=== PATIENT | male | born 1985 | race Caucasian/White ===

== ENCOUNTER 2023-11-18 07:22 | Outpatient (CLI) | payer OTHER, SELFPAY ==
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
--- OUTSIDE RECORDS SUMMARY | 2023-11-19 16:01 | XMS_ITS | Encounter Summary ---
Author Name Unknown Organization [facility] Address [address] [place] [address] Care Team Providers Care Wilderness Guide Name Role Phone No Primary/Referring, Phy Primary Care Provider Unavailable Reason for Visit * (Routine) - Incomplete Specialty Diagnoses / Procedures Referred By Roscoe harmon Referred To Contact Procedures XR C-Arm 0-30 Minutes XR C-Arm 2-2.5 Hours Lucas Valverde MD [address] [place] [address] Referral ID Status Reason Start Date Expiration Date V isits Requested Visits Authorized [id number] Incomplete 11/19/2023 02/17/2025 1 1 Encounter Details Date Type Department Care Team Description 11/19/2023 8:35 AM CONCRETE PIPE MAKER Ancillary Procedure [facility] [address] [place] [address] Arrived Social History Tobacco Use Types Packs/Day Years [...] Department Care Team Description 11/20/2023 8:00 AM CONCRETE PIPE MAKER [facility] Occup[facility] [address] [place] [address] 11/20/2023 3:00 PM CONCRETE PIPE MAKER [facility] [address] [place] [address] 11/21/2023 5:00 AM CONCRETE PIPE MAKER Appointment [facility] Ultrasound [address] [place] [address] 11/21/2023 6:00 AM CONCRETE PIPE MAKER Appointment [facility] [address] [place] [address] Scheduled Procedures Name Priority Associated Diagnoses Date/Ti me FUSION POSTERIOR APPROACH LUMBAR SPINE T12 burst fracture (HRC) 11/19/2023 8:50 AM CONCRETE PIPE MAKER IMAGE GUIDANCE ADD ON SPINE (*) T12 burst fracture (HRC) 11/19/2023 8:50 AM CONCRETE PIPE MAKER O-ARM ADD ON (*) T12 burst fracture (HRC) 11/19/2023 8:50 AM CONCRETE PIPE MAKER documented as of this encounter Procedures Procedure Name Priority Date/Time Associated Diagnosis Comments XR C-ARM 0-30 MINUTES Routine 11/19/2023 10:40 AM CONCRETE PIPE MAKER documented in this encounter Results * XR C-Arm 0-30 Minutes (11/19/2023 10:40 AM CONCRETE PIPE MAKER) Anatomical Region Laterality Modality X-Ray Angiograph y Narrative 11/19/2023 11:55 AM CONCRETE PIPE MAKER Fluoroscopy provided by a applied technologist. Exact fluoroscopy time is documented in end of exam information in EPIC Lucas Valverde MD RAD GD documented in this encounter Visit Diagnoses Not on filedocumented in this encounter Care Teams Wilderness Guide Relationship Specialty Start Date End Date No Primary/Referring, Phy PCP - General 11/18/23 documented as of this encounter
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
--- OUTSIDE RECORDS SUMMARY | 2023-11-19 16:01 | XMS_ITS | Encounter Summary ---
Author Name Unknown Organization [facility] Address [address] [place] [address] Care Team Providers Care Boat Person Name Role Phone No Primary/Referring, Phy Primary Care Provider Unavailable Reason for Visit * (Routine) - Incomplete Specialty Diagnoses / Procedures Referred By Roscoe harmon Referred To Contact Procedures XR C-Arm 1.5-2 Hours XR C-Arm 30-59 Minutes Lucas Valverde MD [address] [place] [phone] Referral ID Status Reason Start Date Expiration Date V isits Requested Visits Authorized [id number] Incomplete 11/19/2023 02/17/2025 1 1 Encounter Details Date Type Department Care Team Description 11/19/2023 8:30 AM FIRE FIGHTERS DISPATCHER Ancillary Procedure [facility] [address] [place] [address] Arrived Social History Tobacco Use Types Packs/Day [...] Department Care Team Description 11/20/2023 8:00 AM FIRE FIGHTERS DISPATCHER [facility] [address] [place] [address] 11/20/2023 3:00 PM FIRE FIGHTERS DISPATCHER [facility] [address] [place] [address] 11/21/2023 5:00 AM FIRE FIGHTERS DISPATCHER Appointment [facility] Ul[facility]ound [address] [place] [address] 11/21/2023 6:00 AM FIRE FIGHTERS DISPATCHER Appointment [facility] [address] [place] [address] Scheduled Procedures Name Priority Associated Diagnoses Date/Ti me FUSION POSTERIOR APPROACH LUMBAR SPINE T12 burst fracture (HRC) 11/19/2023 8:50 AM FIRE FIGHTERS DISPATCHER IMAGE GUIDANCE ADD ON SPINE (*) T12 burst fracture (HRC) 11/19/2023 8:50 AM FIRE FIGHTERS DISPATCHER O-ARM ADD ON (*) T12 burst fracture (HRC) 11/19/2023 8:50 AM FIRE FIGHTERS DISPATCHER documented as of this encounter Procedures Procedure Name Priority Date/Time Associated Diagnosis Comments XR C-ARM 1.5-2 HOURS Routine 11/19/2023 11:55 AM FIRE FIGHTERS DISPATCHER documented in this encounter Results * XR C-Arm 1.5-2 Hours (11/19/2023 11:55 AM FIRE FIGHTERS DISPATCHER) Anatomical Region Laterality Modality X-Ray Angiograph y Narrative 11/19/2023 11:56 AM FIRE FIGHTERS DISPATCHER Fluoroscopy provided by a ep technologist. Exact fluoroscopy time is documented in end of exam information in EPIC Lucas Valverde MD RAD GD documented in this encounter Visit Diagnoses Not on filedocumented in this encounter Care Teams Boat Person Relationship Specialty Start Date End Date No Primary/Referring, Phy PCP - General 11/18/23 documented as of this encounter
--- OUTSIDE RECORDS SUMMARY | 2023-11-19 16:01 | XMS_ITS | Clinical Summary ---
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 (11/18/2023 2:12 PM HR COORDINATOR) Pathologist [facility] Protime 14.2 11.8 - 14.6 Seconds 11/18/2023 2:38 PM HR COORDINATOR [facility] INR 1.1 0.9 - 1.1 11/18/2023 2:38 PM HR COORDINATOR [facility] Blood Venipuncture / Unknown 11/18/2023 2:12 PM HR COORDINATOR 11/18/2023 2:17 PM HR COORDINATOR [facility] - 11/18/2023 2:38 PM HR COORDINATOR Therapeutic range determined by protocol established by anticoagulation provider. Kendell Terrazas MD LAB_[email or web address] Performing Organization Address [facility] Co de Phone Number [address] * Ecg 12-Lead Routine (11/18/2023 1:56 PM HR COORDINATOR) Ventricular Rate 90 BPM [facility] Atrial Rate 90 BPM [facility] P-R Interval 156 ms [facility] QRS Duration 90 ms [facility] QT 350 ms [facility] QTc 428 ms [facility] P Kiel 48 degrees [facility] R Kiel 61 degrees [facility] T Kiel 25 degrees [facility] 11/18/2023 1:56 PM HR COORDINATOR [facility] - 11/18/2023 5:00 PM HR COORDINATOR Sinus rhythm Normal ECG No previous ECGs available Confirmed by Ricki Herrera ([id number]) on 11/18/2023 5:00:16 PM Procedure Note Ricki Herrera MD - 11/18/2023 Sinus rhythm Normal ECG No previous ECGs available Confirmed by Ricki Herrera ([id number]) on 11/18/2023 5:00:16 PM Kendell Terrazas MD EKG [facility] [address] [place] [address] from Last 3 Months Advance Directives Latest Code Status on File Code Status Date Activated Date Inactivated Comments Full Code 11/18/2023 4:59 PM Care Teams 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
--- OUTSIDE RECORDS SUMMARY | 2023-11-19 16:01 | XMS_ITS | Encounter Summary ---
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 Sat11/19/23 at 0801, Per Hypoglycemic episode: Give 25g IV push, recheck POCT glucose in 15 minutes, if result less than 70mg/dL, may repeat. After 2 doses notify Practitioner. May continue to treat while waiting for call back. fentaNYL (SUBLIMAZE) injection 25-50 mcg (CANCELED) 25-50 mcg, Intravenous, [id number], Pain, Starting on Sat11/19/23 at 1211, Until Sat11/19/23 at 1455, PACU USE ONLY 25 mcg IV q5min prn based on the patient's pain scale rating for mild to moderate pain (1 to 5). 50 mcg IV q5min prn based on the patient's pain scale rating for moderate to severe pain (6 to 10). Total PACU fentanyl dose not to exceed 3 mcg/kg. Use fentanyl initially for a short acting agent for treatment of acute post operative pain. May use in conjuction with a longer acting agent for optimal pain control. Respiratory rate must be greater than 10 to administer medications., PACU (only) 1315 (Given - Provid er: Davida Noland RN)1345 (Given - Provider: Davida Noland RN) folic acid 1 mg, thiamine (VITAMIN B-1) 100 mg in sodium chloride 0.9 % 50 mL IV piggyback at 100 mL/hr, Intravenous, DAILY PRN, Starting on Sat11/19/23 at 1520, Until Sat11/22/23 at 1519, if patient unable to take thiamine and folate PO (request dose from Pharmacy) gelatin adsorbable (GELFOAM) sponge size 100 (CANCELED) ONCE PRN, Starting on Sat11/19/23 at 0952, Until Sat11/19/23 at 1455, Intra-op 0952 (Given - Provid er: Lucas Valverde MD) glucagon rDNA (diagnostic) (GLUCAGEN) injection 1 mg(Linked Group 2) 1 mg, Intramuscular, Q15MIN PRN, Hypoglycemia, Per Adult Hypoglycemia Treatment Protocol, Starting on Sat11/19/23 at 0801, Until Discontinued, Per Hypoglycemic episode: Give 1mg IM, turn patient on side to prevent aspiration if vomits. If appropriate, establish IV access STAT. Recheck POCT glucose in 15 minutes, if result less than 70mg/dL and still no IV access, may repeat 1mg IM x 1. Recheck POCT glucose in 15 minutes, if result is less than 70mg/dL notify Practitioner. glucose (GLUTOSE) 40 % oral gel 15 g of glucose(Linked Group 2) 15 g of glucose, Oral, Q15MIN PRN, Hypoglycemia, Per Adult Hypoglycemia Treatment Protocol, Starting on Sat11/19/23 at 0801, Until Discontinued, Give 15g orally, recheck POCT glucose in 15 minutes, if result less than 70mg/dL, may repeat. After 2 doses notify Practitioner. May continue to treat while waiting for call back. 37.5g tube delivers 15g of glucose HYDROmorphone (DILAUDID) injection 0.2-0.3 mg (CANCELED) 0.2-0.3 mg, Intravenous, Q15MIN PRN, Pain, Starting on Sat11/19/23 at 1211, Until Sat11/19/23 at 1455, PACU USE ONLY 0.2 mg IV q15min prn based on the patients pain scale rating for mild to moderate pain (1-5) 0.3 mg IV q15min prn based on the patients pain scale rating for moderate to severe pain (6 to 10) Total PACU hydromorphone dose not to exceed 2 mg per hour., PACU (only) 1330 (Given - Provid er: Davida Noland RN)1345 (Given - Provider: Davida Noland RN)1415 (Given - Provider: Davida Noland RN) HYDROmorphone (DILAUDID) injection 0.2-0.4 mg 0.2-0.4 mg, Intravenous, Q2H PRN, Pain, Use if unable to take PO, Starting on Sat11/18/23 at 1659, Until Sat11/20/23 at 1658, For 48 hours, Give IV opioid for breakthrough pain, if unable to give PO or per patient preference. 1715 (Given - Provider: Iona Avalos RN)1915 (Given - Provider: Iona Avalos RN)213 (Given - Provider: Iona Avalos RN) 0023 (Given - Provider: Syl Robles RN)022 (Given - Provider: Syl Robles RN)0455 (Given - Provider: Syl Robles RN)0748 (Given - Provider: Juany Lan RN) lidocaine-epinephrine 1 %-1:[id number] injection (CANCELED) ONCE PRN, Starting on Sat11/19/23 at 1020, Until Sat11/19/23 at 1455, Intra-op 1020 (Given - Provid er: Lucas Valverde MD) methocarbamol (ROBAXIN) tablet 500 mg 500 mg, Oral, QID PRN, Muscle Spasms, Starting on Sat11/18/23 at 1919, Until Discontinued 1944 (Given - Provider: Iona Avalos RN) 221 (Given - Provider: Syl Robles RN)142 (Given - Provider: Davida Noland RN) metoclopramide (REGLAN) injection 5 mg(Linked Group 3) 5 mg, Intravenous, Q6H PRN, Nausea, Vomiting, Starting on Sat11/18/23 at 1730, Until Discontinued, Give 1st line medications, then 2nd line, then 3rd line. Progress to next line if medication is ineffective after 15 minutes, or has been previously ineffective, or if a medication for a line is not ordered. May use medication from any line if patient preference indicates. If third line agent is ineffective, call Practitioner. If unable to give IV medications contact Practitioner. Aromatherapy may be used at any time as adjunct therapy. 1st Line - ondansetron 2nd Line -prochlorperazine 3rd Line - metoclopramide 185 (Given - Provider: Iona Avalos RN) naloxone (NARCAN) injection 0.2 mg 0.2 mg, Intravenous, PRN PER PARAMETERS, Opioid Reversal, Excessive Sedation/Respiratory Rate less than 8 breaths per minute.? Notify Practitioner if given., Starting on Sat11/18/23 at 1659, Until Discontinued, Excessive Sedation/Respiratory Rate less than 8 breaths per minute.? Notify Practitioner if given. ondansetron (ZOFRAN) injection 4 mg(Linked Group 3) 4 mg, Intravenous, Q8H PRN, Nausea, Vomiting, Starting on Sat11/18/23 at 1730, Until Discontinued, Give 1st line medications, then 2nd line, then 3rd line. Progress to next line if medication is ineffective after 15 minutes, or has been previously ineffective, or if a medication for a line is not ordered. May use medication from any line if patient preference indicates. If third line agent is ineffective, call Practitioner. If unable to give IV medications contact Practitioner. Aromatherapy may be used at any time as adjunct therapy. 1st Line - ondansetron 2nd Line -prochlorperazine 3rd Line - metoclopramide oxyCODONE (ROXICODONE) immediate release tablet 5-10 mg 5-10 mg, Oral, Q4H PRN, Pain, Starting on Sat11/18/23 at 1659, Until Discontinued, Give PO opioid if able to take PO and pain not well controlled with other medications or interventions. 182 (Given - Provider: Iona Avalos RN) 0336 (Given - Provider: Syl Robles RN)0748 (Given - Provider: Juany Lan RN) prochlorperazine (COMPAZINE) injection 10 mg(Linked Group 3) 10 mg, Intravenous, Q6H PRN, Nausea, Vomiting, Starting on Sat11/18/23 at 1730, Until Discontinued, Give 1st line medications, then 2nd line, then 3rd line. Progress to next line if medication is ineffective after 15 minutes, or has been previously ineffective, or if a medication for a line is not ordered. May use medication from any line if patient preference indicates. If third line agent is ineffective, call Practitioner. If unable to give IV medications contact Practitioner. Aromatherapy may be used at any time as adjunct therapy. 1st Line - ondansetron 2nd Line -prochlorperazine 3rd Line - metoclopramide 1758 (Given - Provider: Iona Avalos RN) thrombin (recombinant) topical liquid (CANCELED) ONCE PRN, Starting on Sat11/19/23 at 0952, Until Sat11/19/23 at 1455, Intra-op 0952 (Given - Provid er: Lucas Valverde MD) thrombin-gelatin (aka SURGIFLO) matrix (CANCELED) ONCE PRN, Starting on Sat11/19/23 at 0952, Intra-op 0952 (Given - Provid er: Lucas Valverde MD) Linked Groups Order Group 1: thiamine (VITAMIN B-1) tablet 100 mgJump to med 100 mg, Oral, DAILY, First dose on Sat11/19/23 at 1545, Last dose on Sat11/21/23 at 0800, For 3 days
If patient is unable to take oral medications, please use Daily PRN thiamine/folate IV piggyback order (request dose from pharmacy).
And folic acid tablet 1 mgJump to med 1 mg, Oral, DAILY, First dose on Sat11/19/23 at 1545, Last dose on Sat11/21/23 at 0800, For 3 days
If patient is unable to take oral medications, please use Daily PRN thiamine/folate IV piggyback order (request dose from pharmacy).
Group 2: glucose (GLUTOSE) 40 % oral gel 15 g of glucoseJump to med 15 g of glucose, Oral, Q15MIN PRN, Hypoglycemia, Per Adult Hypoglycemia Treatment Protocol, Starting on Sat11/19/23 at 0801, Until Discontinued
Give 15g orally, recheck POCT glucose in 15 minutes, if result less than 70mg/dL, may repeat. After 2 doses notify Practitioner. May continue to treat while waiting for call back. 37.5g tube delivers 15g of glucose
Or dextrose (D50) injection 25 gJump to med 25 g, Intravenous, Q15MIN PRN, Hypoglycemia, Per Adult Hypoglycemia Treatment Protocol, Starting on Sat11/19/23 at 0801
Per Hypoglycemic episode: Give 25g IV push, recheck POCT glucose in 15 minutes, if result less than 70mg/dL, may repeat. After 2 doses notify Practitioner. May continue to treat while waiting for call back.
Or glucagon rDNA (diagnostic) (GLUCAGEN) injection 1 mgJump to med 1 mg, Intramuscular, Q15MIN PRN, Hypoglycemia, Per Adult Hypoglycemia Treatment Protocol, Starting on Sat11/19/23 at 0801, Until Discontinued
Per Hypoglycemic episode: Give 1mg IM, turn patient on side to prevent aspiration if vomits. If appropriate, establish IV access STAT. Recheck POCT glucose in 15 minutes, if result less than 70mg/dL and still no IV access, may repeat 1mg IM x 1. Recheck POCT glucose in 15 minutes, if result is less than 70mg/dL notify Practitioner.
Group 3: ondansetron (ZOFRAN) injection 4 mgJump to med 4 mg, Intravenous, Q8H PRN, Nausea, Vomiting, Starting on Sat11/18/23 at 1730, Until Discontinued
Give 1st line medications, then 2nd line, then 3rd line. Progress to next line if medication is ineffective after 15 minutes, or has been previously ineffective, or if a medication for a line is not ordered. May use medication from any line if patient preference indicates. If third line agent is ineffective, call Practitioner. If unable to give IV medications contact Practitioner. Aromatherapy may be used at any time as adjunct therapy. 1st Line - ondansetron 2nd Line -prochlorperazine 3rd Line - metoclopramide
And prochlorperazine (COMPAZINE) injection 10 mgJump to med 10 mg, Intravenous, Q6H PRN, Nausea, Vomiting, Starting on Sat11/18/23 at 1730, Until Discontinued
Give 1st line medications, then 2nd line, then 3rd line. Progress to next line if medication is ineffective after 15 minutes, or has been previously ineffective, or if a medication for a line is not ordered. May use medication from any line if patient preference indicates. If third line agent is ineffective, call Practitioner. If unable to give IV medications contact Practitioner. Aromatherapy may be used at any time as adjunct therapy. 1st Line - ondansetron 2nd Line -prochlorperazine 3rd Line - metoclopramide
And metoclopramide (REGLAN) injection 5 mgJump to med 5 mg, Intravenous, Q6H PRN, Nausea, Vomiting, Starting on Sat11/18/23 at 1730, Until Discontinued
Give 1st line medications, then 2nd line, then 3rd line. Progress to next line if medication is ineffective after 15 minutes, or has been previously ineffective, or if a medication for a line is not ordered. May use medication from any line if patient preference indicates. If third line agent is ineffective, call Practitioner. If unable to give IV medications contact Practitioner. Aromatherapy may be used at any time as adjunct therapy. 1st Line - ondansetron 2nd Line -prochlorperazine 3rd Line - metoclopramide
And Aromatherapy - Q-easy Routine, Q8H PRN, Starting on Sat11/18/23 at 1730, Until Specified
Aromatherapy may be used at any time as adjunct therapy as needed for Nausea/Vomiting. documented in this encounter Care Teams Boiling House Oiler Relationship Specialty Start Date End Date No Primary/Referring, Phy PCP - General 11/18/23 documented as of this encounter
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
--- OUTSIDE RECORDS SUMMARY | 2023-11-19 16:02 | XMS_ITS | Encounter Summary ---
Author Name [facility] Address [address] [place] [address] Care Team Providers Care Materials Scheduler Name Role Phone No Primary/Referring, Phy Primary Care Provider Unavailable Reason for Visit * Procedure/Equipment (Routine) - Incomplete Specialty Diagnoses / Procedures Referred By Roscoe harmon Referred To Contact Procedures CT Angio Chest And CT Abd Pelvis W IV Kendell Vásquez MD [address] [place] [address] Referral ID Status Reason Start Date Expiration Date V isits Requested Visits Authorized [id number] Incomplete 11/18/2023 02/16/2025 1 1 Encounter Details Date Type Department Care Team Description 11/18/2023 3:25 PM BAND SAW OPERATOR Ancillary [facility] [address] [place] [address] Social History Tobacco Use Types Packs/Day Years [...] Department Care Team Description 11/20/2023 8:00 AM BAND SAW OPERATOR [facility] [address] [place] [address] 11/20/2023 3:00 PM BAND SAW OPERATOR Office Visit [facility] Physical Therapy [address] [place] [address] 11/21/2023 5:00 AM BAND SAW OPERATOR Appointment [facility] Ultrasound [address] [place] [address] 11/21/2023 6:00 AM BAND SAW OPERATOR Appointment [facility] [address] [place] [phone] Scheduled Procedures Name Priority Associated Diagnoses Date/Ti me FUSION POSTERIOR APPROACH LUMBAR SPINE T12 burst fracture (HRC) 11/19/2023 8:50 AM BAND SAW OPERATOR IMAGE GUIDANCE ADD ON SPINE (*) T12 burst fracture (HRC) 11/19/2023 8:50 AM BAND SAW OPERATOR O-ARM ADD ON (*) T12 burst fracture (HRC) 11/19/2023 8:50 AM BAND SAW OPERATOR documented as of this encounter Procedures Procedure Name Priority Date/Time Associated Diagnosis Comments CT ANGIO CHEST AND CT ABD PELVIS W IV CONT STAT 11/18/2023 4:14 PM BAND SAW OPERATOR documented in this encounter Visit Diagnoses Not on filedocumented in this encounter Administered Medications Inactive Administered Medications - up to 3 most recent administrations Medication Order MAR Action Action Date Dose Rate Site iohexol (OMNIPAQUE 350) 350 MG/ML injection 125 mL 125 mL, Intravenous, ONCE, On 11/18/23 at 1630, For 1 dose Given 11/18/2023 4:06 PM BAND SAW OPERATOR 125 mL documented in this encounter Care Teams Materials Scheduler Relationship Specialty Start Date End Date No Primary/Referring, Phy PCP - General 11/18/23 documented as of this encounter
--- OUTSIDE RECORDS SUMMARY | 2023-11-19 16:02 | XMS_ITS | Encounter Summary ---
Author Name [facility] Address [address] [place] [address] Care Team Providers Care Scaler Packer Name Role Phone No Primary/Referring, Phy Primary Care Provider Unavailable Reason for Visit * Procedure/Equipment (Routine) - Incomplete Specialty Diagnoses / Procedures Referred By Roscoe harmon Referred To Contact Procedures CT Angio Neck W IV Kendell Vásquez MD [address] [place] [address] Referral ID Status Reason Start Date Expiration Date V isits Requested Visits Authorized [id number] Incomplete 11/18/2023 02/16/2025 1 1 Encounter Details Date Type Department Care Team Description 11/18/2023 3:30 PM SHADE CUTTER Ancillary [facility] [address] [place] [address] Social History Tobacco Use Types Packs/Day Years [...] Department Care Team Description 11/20/2023 8:00 AM SHADE CUTTER [facility] [address] [place] [address] 11/20/2023 3:00 PM SHADE CUTTER Office Visit [facility] Physical Therapy [address] [place] [address] 11/21/2023 5:00 AM SHADE CUTTER Appointment [facility] Ul[facility]ound [address] [place] [address] 11/21/2023 6:00 AM SHADE CUTTER Appointment [facility] [address] [place] [phone] Scheduled Procedures Name Priority Associated Diagnoses Date/Ti me FUSION POSTERIOR APPROACH LUMBAR SPINE T12 burst fracture (HRC) 11/19/2023 8:50 AM SHADE CUTTER IMAGE GUIDANCE ADD ON SPINE (*) T12 burst fracture (HRC) 11/19/2023 8:50 AM SHADE CUTTER O-ARM ADD ON (*) T12 burst fracture (HRC) 11/19/2023 8:50 AM SHADE CUTTER documented as of this encounter Procedures Procedure Name Priority Date/Time Associated Diagnosis Comments CT ANGIO NECK W IV CONT STAT 11/18/2023 4:18 PM SHADE CUTTER documented in this encounter Results * CT Angio Neck W IV Cont (11/18/2023 4:18 PM SHADE CUTTER) Anatomical Region Laterality Modality Neck, Head, Vascular Computed To mography 11/18/2023 4:18 PM SHADE CUTTER Narrative 11/18/2023 4:32 PM SHADE CUTTER EXAM: CT ANGIO NECK W IV CONT LOCATION: [facility] DATE: 11/18/2023 INDICATION: Screening [...] CT ANGIO NECK W IV CONT LOCATION: [facility] DATE: 11/18/2023 INDICATION: Screening for BCVI [...] the neck. Kendell Terrazas MD RAD CT documented in this encounter Visit Diagnoses Not on filedocumented in this encounter Care Teams Scaler Packer Relationship Specialty Start Date End Date No Primary/Referring, Phy PCP - General 11/18/23 documented as of this encounter
--- OUTSIDE RECORDS SUMMARY | 2023-11-19 16:02 | XMS_ITS | Encounter Summary ---
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 T-12 fracture,Neurologically intact. Pain rated 7/10. 4 mg of Morphine 5 mg of Dilaudid 100 mcg fentanyl given in route TATION MANAGER documented in this encounter Admitting Diagnoses Diagnosis T12 burst fracture (HRC) Closed fracture of T7-T12 level with unspecified spinal cord injury documented in this encounter Administered Medications Active Administered Medications - up to 3 most recent administrations Medication Order MAR Action Action Date Dose Rate Site acetaminophen (TYLENOL) tablet 1,000 mg 1,000 mg, Oral, TID, First dose on 11/18/23 at 1715, Until Discontinued, Do not give two acetaminophen containing medications within 4 hours of each other. No more than 4 grams APAP per 24 hours from all sources. Given 11/19/2023 2:15 PM SUBSTATION MANAGER 1,000 mg Given 11/19/2023 7:48 AM SUBSTATION MANAGER 1,000 mg Given 11/18/2023 5:15 PM SUBSTATION MANAGER 1,000 mg calcium carbonate (TUMS) chewable tablet 1,000 mg 1,000 mg, Oral, Q4H PRN, Heartburn, Starting on Sat11/18/23 at 2256, Until Discontinued, Each tablet provides 200 mg elemental calcium Given 11/19/2023 12:23 AM SUBSTATION MANAGER 1,000 mg ceFAZolin (ANCEF) 2 g in [...] per patient preference. Given 11/19/2023 7:48 AM SUBSTATION MANAGER 0.4 mg Given 11/19/2023 4:55 AM SUBSTATION MANAGER 0.4 mg Given 11/19/2023 2:22 AM SUBSTATION MANAGER 0.4 mg insulin lispro (HumALOG) injection vial [...] 1919, Until Discontinued Given 11/19/2023 2:29 PM SUBSTATION MANAGER 500 mg Given 11/19/2023 2:22 AM SUBSTATION MANAGER 500 mg Given 11/18/2023 7:44 PM SUBSTATION MANAGER 500 mg metoclopramide (REGLAN) injection 5 mg [...] Line - metoclopramide Given 11/18/2023 6:59 PM SUBSTATION MANAGER 5 mg ondansetron (ZOFRAN) injection 4 mg [...] medications or interventions. Given 11/19/2023 7:48 AM SUBSTATION MANAGER 10 mg Given 11/19/2023 3:36 AM SUBSTATION MANAGER 10 mg Given 11/18/2023 6:22 PM SUBSTATION MANAGER 10 mg polyethylene glycol (MIRALAX) oral powder [...] Line - metoclopramide Given 11/18/2023 5:59 PM SUBSTATION MANAGER 10 mg sennosides-docusate sodium (SENOKOT S) 8.6-50 [...] MAR Action Action Date Dose Rate Site diazePAM (VALIUM) injection 5 mg 5 mg, Intravenous, ONCE, On Sat11/18/23 at 1315, For 1 dose, rate of IV push: do not exceed, in children 1-2 mg/min; in adults 5 mg/min Given 11/18/2023 1:30 PM SUBSTATION MANAGER 5 mg fentaNYL (SUBLIMAZE) injection 100 mcg 100 mcg, Intravenous, ONCE, On Sat11/18/23 at 1315, For 1 dose Given 11/18/2023 1:27 PM SUBSTATION MANAGER 100 mcg fentaNYL (SUBLIMAZE) injection 25-50 mcg 25-50 mcg, Intravenous, [id number], Pain, Starting on Sat11/19/23 at 1211, Until [...] than 10 to administer medications., PACU (only) Given 11/19/2023 1:45 PM SUBSTATION MANAGER 50 mcg Given 11/19/2023 1:15 PM SUBSTATION MANAGER 50 mcg HYDROmorphone (DILAUDID) injection 0.2-0.3 mg 0.2-0.3 mg, Intravenous, Q15MIN PRN, Pain, Starting [...] exceed 2 mg per hour., PACU (only) Given 11/19/2023 2:15 PM SUBSTATION MANAGER 0.3 mg Given 11/19/2023 1:45 PM SUBSTATION MANAGER 0.3 mg Given 11/19/2023 1:30 PM SUBSTATION MANAGER 0.3 mg HYDROmorphone (DILAUDID) injection 1 mg 1 mg, Intravenous, ONCE, On Sat11/18/23 at 1515, For 1 dose Given 11/18/2023 2:59 PM SUBSTATION MANAGER 1 mg ondansetron (ZOFRAN) injection 8 mg 8 mg, Intravenous, ONCE, On Sat11/18/23 at 1600, For 1 dose Given 11/18/2023 3:52 PM SUBSTATION MANAGER 8 mg oxyCODONE (ROXICODONE) immediate release tablet 10 mg 10 mg, Oral, ONCE (NON-SCHEDULED), Starting on Sat11/19/23 at 1359, Until Sat11/19/23 at 1415, For 1 dose, PACU (only) Given 11/19/2023 2:15 PM SUBSTATION MANAGER 10 mg sennosides-docusate sodium (SENOKOT S) 8.6-50 MG per tablet 1 Tablet 1 Tablet, Oral, BID, First dose on Sat11/18/23 at 2000, Until Discontinued, as laxative/stimulant, stool-softening agent Given 11/18/2023 7:44 PM SUBSTATION MANAGER 1 Tablet documented in this encounter Active and Recently Administered Medications Times are shown in SUBSTATION MANAGER. Scheduled Medication Order 11/17/2023 11/18/2023 11/19/2023 acetaminophen (TYLENOL) tablet 1,000 mg 1,000 mg, Oral, TID, First dose on Sat11/18/23 at 1715, Until Discontinued, Do not give two acetaminophen containing medications within 4 hours of each other. No more than 4 grams APAP per 24 hours from all sources. 1715 (Given - Provider: Iona Avalos, DALE) 0748 (Given - Provider: Juany Lan RN)1415 [...] 1015 (Started - Provider: Calderon Davila APRN, [employer] OPERATOR) diazePAM (VALIUM) injection 5 mg (COMPLETED) 5 mg, Intravenous, ONCE, On Sat11/18/23 at 1315, For 1 dose, rate of IV push: do not exceed, in children 1-2 mg/min; in adults 5 mg/min 1330 (Given - Provider: Rigo Lopez, DALE) fentaNYL (SUBLIMAZE) injection 100 mcg (COMPLETED) 100 [...] 194 (Given - Provider: Iona Avalos RN) 0752 (Not Given - Provider: Juany Lan RN - Reason: NPO - Comment: going to [place]) sennosides-docusate sodium (SENOKOT S) 8.6-50 MG per tablet 2 Tablet 2 Tablet, Oral, BID, First dose (after last modification) on Sat11/19/23 at 2000, Until Discontinued, as laxative/stimulant, stool-softening agent 1999 [...] injection 25-50 mcg (CANCELED) 25-50 mcg, Intravenous, [id number], Pain, Starting on Sat11/19/23 at 1211, Until [...] Avalos RN)1915 (Given - Provider: Iona Avalos RN)2132 (Given - Provider: Iona Avalos RN) 0023 (Given - Provider: Syl Robles, DALE)0222 (Given - Provider: Syl Robles, RN)0455 (Given - Provider: Syl Robles, DALE)0748 (Given - Provider: May T Riky, RN) lidocaine-epinephrine 1 %-[id number] injection (CANCELED) ONCE PRN, Starting on Sat11/19/23 at 1020, Until Sat11/19/23 at 1455, Intra-op 1020 (Given - Provid er: Lucas Valverde MD) methocarbamol (ROBAXIN) tablet 500 mg 500 mg, Oral, QID PRN, Muscle Spasms, Starting on Sat11/18/23 at 1919, Until Discontinued 1944 (Given - Provider: Iona Avalos, DALE) 221 (Given - Provider: Syl Robles, DALE)142 (Given - Provider: Davida Noland RN) metoclopramide [...] 2nd Line -prochlorperazine 3rd Line - metoclopramide 1858 (Given - Provider: Iona Avalos, DALE) naloxone (NARCAN) injection 0.2 mg 0.2 mg, [...] well controlled with other medications or interventions. 1822 (Given - Provider: Iona Avalos, DALE) 0336 (Given - Provider: Syl Robles, RN)0748 (Given - Provider: Juany Lan RN) [...] 2nd Line -prochlorperazine 3rd Line - metoclopramide 1759 (Given - Provider: Iona Avalos RN) thrombin [...] - Q-easy Routine, Q8H PRN, Starting on 11/18/23 at 1730, Until Specified
Aromatherapy may be used at any time as adjunct therapy as needed for Nausea/Vomiting. documented in this encounter Care Teams Electric Organ Assembler And Checker Relationship Specialty Start Date End Date No Primary/Referring, Phy PCP - General 11/18/23 documented as of this encounter
== END 2023-11-18 07:23 | disposition home or self-care (01) ==
LOC: AMB 11-19 15:59
PROVIDERS: Visit Provider Family Medicine
DX: S29.9XXA Unspecified injury of thorax, initial encounter (principal); R06.09 Other forms of dyspnea; V47.0XXA Car driver injured in collision with fixed or stationary object in nontraffic accident, initial encounter; Y92.410 Unspecified street and highway as the place of occurrence of the external cause
CPT/HCPCS: A0425; A0427

== ENCOUNTER 2023-11-18 08:23 | Emergency (ER) | payer OTHER, SELFPAY ==
[2023-11-18] VITALS (9 sets, daily range): BP systolic 125–134; BP diastolic 83–100; PULSE 80–92; RESP 18; TEMP 36.3–36.7; O2SAT 97–99; BMI 48.4
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
[2023-11-18] MEDS: MORPHINE 4 MG/ML INJ IVP (08:30)
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
[2023-11-18 08:58] LABS: Basophils Percent Auto 0.3 % (0.0-3.0); Eosinophils Percent Auto 1.1 % (0.0-7.0); Hematocrit 46.4 % (37.0-53.0); Hemoglobin* 15.2 gm/dL (13.5-17.5); Immature Granulocytes Pct Auto 1.4 %; Lymphocytes Percent Auto 16.7 % (20-44); Mean Corpuscular HGB Conc 33 gm/dL (32-36); Mean Corpuscular Hemoglobin 30 pg (26-34); Mean Corpuscular Volume 90 fL (80-100); Monocytes Percent Auto 7.5 % (0.0-11.0); Platelet Count* 296 K/uL (140-440); RDW Coefficient of Variation % 12.5 % (11.5-15.5); Red Blood Count 5.14 m/uL (4.30-5.90); White Blood Count* 11.47 K/uL (4.50-11.00)
[2023-11-18 08:59] LABS: Slide Review Reflex No
[2023-11-18 09:10] LABS: Chloride* 108 mmol/L (96-114); INR 0.99 (0.91-1.10); Prothrombin Time 13.7 Seconds; Sodium* 141 mmol/L (135-149)
[2023-11-18 09:11] LABS: Partial Thromboplastin Time* 31 Seconds (23-33); Potassium* 3.9 mmol/L (3.6-5.1)
[2023-11-18 09:13] LABS: Anion Gap 7 mEq/L (7-15); Carbon Dioxide* 26 mmol/L (20-32); Creatinine* 0.8 mg/dL (0.5-1.5); Est. Creatinine Clearance* 114.09; Estimated Glomerular Filt Rate 117 ml/min
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
[2023-11-18 09:14] LABS: Blood Urea Nitrogen* 15 mg/dL (5-24); Calcium* 8.9 mg/dL (8.4-10.6); Glucose* 116 mg/dL (60-115)
[2023-11-18] MEDS: HYDROmorphone 0.5 mg/0.5 ml inj IVP ×2 (09:28→10:33)
--- NOTE | 2023-11-18 10:29 | PC.NURSE ---
Nurse to Nurse report called to charge nurse at [facility], Fang HUNTER.Paging out transfer now.,
--- NOTE | 2023-11-18 10:41 | PC.NURSE ---
pt states he does not have the urge to urinate, attempted to uses urinal. will inform physician.
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
== END 2023-11-18 11:22 | disposition short-term general hospital (02) ==
PROVIDERS: Emergency Provider Emergency Medicine
DX: S22.089A Unspecified fracture of T11-T12 vertebra, initial encounter for closed fracture (principal); V46.0XXA Car driver injured in collision with other nonmotor vehicle in nontraffic accident, initial encounter
CPT/HCPCS: 36415; 70450; 71045; 72125; 72128; 72131; 80048; 81001; 85025; 85610; 85730; 94761; 96374; 96375; 96376; 99284; 99291; G0390; J1170; J2270

== ENCOUNTER 2023-11-18 11:09 | Outpatient (CLI) | payer OTHER, SELFPAY | END 2023-11-18 11:10 | disposition home or self-care (01) | LOC: AMB 11-19 16:12 | PROVIDERS: Visit Provider Family Medicine | DX: S22.009S Unspecified fracture of unspecified thoracic vertebra, sequela (principal) | CPT/HCPCS: A0425; A0426 ==